=== PATIENT | female | born 1940 | race Caucasian/White ===

== ENCOUNTER 2020-07-13 10:06 | Emergency (ER) | payer OTHER ==
[~2020-07-13] VITALS: Ht 152.4 cm; Wt 72.6 kg
[2020-07-13] MEDS ORDERED: NAMENDA1 EACH PO (10:17)
[2020-07-13] MEDS ORDERED: RISPERDAL1 MG (10:17)
[2020-07-13] MEDS ORDERED: OSTERA TABLET1 EACH (10:18)
[2020-07-13] MEDS ORDERED: CLONAZEPAM1 MG (10:18)
[2020-07-13] MEDS ORDERED: ARICEPT5 MG (10:18)
== END 2020-07-13 13:06 | disposition home or self-care (01) ==
LOC: ER 10:06
DX: S82.62XA Displaced fracture of lateral malleolus of left fibula, initial encounter for closed fracture (principal); W18.39XA Other fall on same level, initial encounter; Y93.89 Activity, other specified; Y92.098 Other place in other non-institutional residence as the place of occurrence of the external cause; Y99.8 Other external cause status

== ENCOUNTER 2020-07-20 09:13 | Outpatient (CLI) | payer OTHER ==
[~2020-07-20 09:13] MED LIST: ARICEPT5 MG; CLONAZEPAM1 MG; NAMENDA1 EACH PO; OSTERA TABLET1 EACH; RISPERDAL1 MG
== END 2020-07-20 09:19 | disposition home or self-care (01) ==
LOC: RAD 09:13
PROVIDERS: ATTEND Orthopaedic Surgery
DX: S82.62XA Displaced fracture of lateral malleolus of left fibula, initial encounter for closed fracture (principal); M25.572 Pain in left ankle and joints of left foot

== ENCOUNTER 2020-09-26 09:44 | Outpatient (CLI) | payer OTHER | END 2020-09-26 09:45 | disposition home or self-care (01) | LOC: LAB 09:44 | PROVIDERS: ATTEND Orthopaedic Surgery | DX: E56.1 Deficiency of vitamin K (principal); M85.88 Other specified disorders of bone density and structure, other site; E55.9 Vitamin D deficiency, unspecified; E21.2 Other hyperparathyroidism; M81.8 Other osteoporosis without current pathological fracture ==

== ENCOUNTER 2020-09-26 10:51 | Outpatient (CLI) | payer OTHER | END 2020-09-26 10:53 | disposition home or self-care (01) | LOC: NUCLEAR 10:51 | PROVIDERS: ATTEND Orthopaedic Surgery | DX: M81.0 Age-related osteoporosis without current pathological fracture (principal) ==

== ENCOUNTER 2020-10-06 08:47 | Emergency (ER) | payer OTHER ==
[~2020-10-06] VITALS: Ht 165.1 cm; Wt 63.5 kg
== END 2020-10-06 12:59 | disposition home or self-care (01) ==
LOC: ER 08:47
DX: S80.12XA Contusion of left lower leg, initial encounter (principal); W22.8XXA Striking against or struck by other objects, initial encounter; Y93.89 Activity, other specified; Y92.092 Bedroom in other non-institutional residence as the place of occurrence of the external cause; Y99.8 Other external cause status

== ENCOUNTER 2023-07-29 13:44 | Emergency (ER) | payer OTHER ==
[~2023-07-29] VITALS: Ht 162.6 cm; Wt 45.4 kg
[2023-07-29] MEDS ORDERED: MEMANTINE HCL10 MG (13:51)
[2023-07-29] MEDS ORDERED: DONEPEZIL HCL23 MG (13:51)
[2023-07-29] MEDS ORDERED: RISPERIDONE0.5 MG (13:51)
[2023-07-29] MEDS ORDERED: CLONAZEPAM0.5 MG (13:51)
[2023-07-29 17:09] LABS: HEMATOCRIT 38.8 % (36.0-45.00); MEAN CORPUSCULAR HEMOGLOBIN 32.5 pg (27.00-32.0); MEAN CORPUSCULAR HGB CONC 33.5 g/dl (32.0-36.0); PLATELET COUNT 136 K/uL (150-450); RED CELL DISTRIBUTION WIDTH 14.4 % (11.5-14.5)
[2023-07-29 17:29] LABS: CALCIUM 9.5 mg/dL (8.5-10.1); CREATININE SERUM 0.93 mg/dL (0.55-1.02); GFR 57.44; POTASSIUM 4.2 mEq/L (3.5-5.1)
[2023-07-29 18:32] LABS: URINE APPEARANCE Cloudy; URINE BILIRRUBIN Negative (NEGATIVE); URINE BLOOD Negative; URINE COLOR Yellow; URINE GLUCOSE Negative (NEGATIVE); URINE LEUKOCYTE Trace; URINE NITRATE Negative; URINE PROTEIN Negative (NEGATIVE)
[2023-07-29 18:33] LABS: URINE BACTERIA 64.2 uL (0.0-1933); URINE RBC 18.6 uL (0.0-20.8); URINE WBC 20.7 uL (0.0-23.2)
[2023-07-29 18:55] LABS: URINE CRYSTALS FEW /HPF
[2023-07-30] MEDS ORDERED: MIRALAX17 GM PO (01:52)
== END 2023-07-30 08:25 | disposition home or self-care (01) ==
LOC: ER 13:44
PROVIDERS: Emergency Medicine
DX: K56.41 Fecal impaction (principal); K45.8 Other specified abdominal hernia without obstruction or gangrene; K80.20 Calculus of gallbladder without cholecystitis without obstruction; G30.9 Alzheimer's disease, unspecified; F02.80 Dementia in other diseases classified elsewhere, unspecified severity, without behavioral disturbance, psychotic disturbance, mood disturbance, and anxiety
CPT/HCPCS: 36415; 74177; 96365; 99284; J3490; Q9965